=== PATIENT | male | born 2000 | race Native Hawaiian/Other Pacific Islander ===

== ENCOUNTER 2024-06-12 20:10 | Emergency (ER) | payer OTHER, SELFPAY ==
--- OUTSIDE RECORDS SUMMARY | 2024-06-12 20:13 | XMS_ITS | Clinical Summary ---
Author Organization [employer] Address [address] [place] [id number] Care Team Providers Care Air Analysis Engineering Technician Name Role Phone No, Pcp [[id number]] Primary Care Provider Unavailabl e Allergies No known active allergies Medications EPINEPHrine (EPIPEN) 0.3 mg/0.3 mL injectionIndic ations:Anaphyl axis due to exercise, subsequent encounter Inject 0.3 mg intramuscular one time if needed for Allergic Reaction for up to 1 dose. 2 Each 5 8 Active fexofenadine (MAR) 180 mg tabletIndicati ons:Seasonal allergies Take 1 tablet by mouth once daily. 90 tablet 3 8 Active Active Problems Problem Noted Date Diagnosed Date Tear of left glenoid labrum 06/15/2022 Urticaria of unknown origin 12/24/2016 Immunizations Immunization Administration Dates Next Due DTaP 10/20/2007, 4,08/08/2003,11/10,2002 [id number] (Pediarix) 2002,2002 HIB PRP-OMP (PedvaxHIB) 08/08/2003,2002, HIB PRP-T (ActHIB,Hiberix) 2002 HIB-HepB (Comvax) 08/08/2003 HPV 9 (Gardasil 9) 09/08/2017 Hepatitis A (Peds) 10/17/2010,10/20/2007 Hepatitis B (Peds) 05/08/2004,12/12/2003, 004 Inactivated Polio Vaccine 10/20/2007,,2002,08/09 Influenza, IIV3 (Age >=3 years) 12/12/2003 MENINGOCOCCAL VACCINE 2 VIAL 2MO-55YO (MENVEO) 10/05/2013 MMR 10/20/2007,08/08/2003 Pneumococcal conj 7-Valent (Prevnar 7) 3,2002 Tdap 10/05/2013 Varicella Vaccine 10/20/2007,12/12/2003 Family History Medical History Relation Name Comments No Known Problems Brother 1 No Known Problems Brother 2 Good Health Father passed in accid ent Heart Disease Maternal Grandfather Heart attack Maternal Grandfather Heart Disease Maternal Grandmother Heart attack Maternal Grandmother Good Health Mother No Known Problems Sister 1 No Known Problems Sister 2 Relation Name Status Comments Brother 1 Alive Brother 2 Alive Father (Age 23) accident Maternal Grandfather (Age 54) [place] Maternal Grandmother Alive Mother Alive Sister 1 Alive Sister 2 Alive Social History Tobacco Use Types Packs/Day Years Used Date Smoking Tobacco: Never Smokeless Tobacco: Never Tobacco Cessation:Counseling Given: Yes Comments:no exposure Alcohol Use Standard Drinks/Week Comments No 0 (1 standard drink = 0.6 oz pur e alcohol) PHQ-2 Answer Date Recorded PHQ-2 Score 0 04/17/2018 Social Connections Answer Date Recorded Frequency of Communication with Friends and Fami ly Not on file 06/29/2022 Financial Resource Strain Answer Date R ecorded Difficulty of Paying Living Expenses 3 06/18/2021 Difficulty of Paying Living Expenses Not on file 06/18/2021 Food Insecurity Answer Date Recorded Worried About Running Out of Food in the Last Ye ar 1 06/18/2021 Transportation Needs Answer Date Record ed Lack of Transportation (Medical) 1 06/18/2021 Housing Stability Answer Date Recorded Unable to Pay for Housing in the Last Year 1 06/18/2021 Sex and Gender Information Value Date Recorded Sex Assigned at Not on file Legal Sex Male 5:50 AM EMERGENCY DEPARTMENT DIRECTOR Gender Identity Not on file Sexual Orientation Not on file Occupation Industry Job Start Date Job End Date Student Not on file Not on file Not on file Obstetrics History Last Filed Vital Signs Vital Sign Reading Time Taken Comments Blood Pressure 104/70 02/16/2023 3:09 PM EMERGENCY DEPARTMENT DIRECTOR Pulse 68 02/16/2023 3:09 PM EMERGENCY DEPARTMENT DIRECTOR Temperature 36.6 C (97.9 F) 02/16/2017 1:48 PM EMERGENCY DEPARTMENT DIRECTOR Respiratory Rate 16 02/16/2023 3:09 PM EMERGENCY DEPARTMENT DIRECTOR Oxygen Saturation 99% 12/29/2022 4:11 PM EMERGENCY DEPARTMENT DIRECTOR Inhaled Oxygen Concentration - - Weight 67.7 kg (149 lb 3.2 oz) 02/16/2023 3:09 P M EMERGENCY DEPARTMENT DIRECTOR Height 177.2 cm (5' 9.75) 02/16/2023 3:09 PM CS T Body Mass Index 21.56 02/16/2023 3:09 PM EMERGENCY DEPARTMENT DIRECTOR Plan of Treatment Health Maintenance Due Date Last Done Comments HPV series for age 9-26 (2 - Male 3-dose series) 10/06/2017 09/08/2017 Depression screening for age 12+ 09/10/2018 09/10/2017, 09/08/2017, 06/27/2015 Tetanus booster 10/06/2023 10/05/2013 COVID-19 vaccine series ( season) 2023 04/28/2021 BMI (ht and wt on same day) for age 18+ 02/17/2024 02/16/2023, 05/18/2022, 07/29/2021 Influenza Vaccine (Season Ended) 2024 12/12/2003 Pneumococcal series for age 6-49 Aged Out 2002, 2002 No longer eligible based on patient's age to complete this topic Tdap Completed 10/05/2013 HIV for age 15-65 Completed 12/29/2022 Hepatitis C screening for ag e 18-79 Completed 12/29/2022 Procedures Procedure Name Priority Date/Time Associated Diagnosis Comments ANTI HIV 1/2 Routine 12/29/2022 4:25 PM EMERGENCY DEPARTMENT DIRECTOR Screening for HIV (human immunodeficiency virus) ANTI HCV Routine 12/29/2022 4:25 PM EMERGENCY DEPARTMENT DIRECTOR Need for hepatitis C screening test from Last 3 Months or Most Recently Relevant to Health Maintenance Results * ANTI HCV (12/29/2022 4:25 PM EMERGENCY DEPARTMENT DIRECTOR) HEPATITIS C ANTIBODY Non-Reacti ve Non-React osvaldo 12/30/2022 2:51 PM EMERGENCY DEPARTMENT DIRECTOR [facility] Comment:Please note, per www .CDC.gov: If a patient is known to be at high risk of HCV infection, or is symptomatic, and the physician's suspicion of HCV infection is high, HCV RNA testing is often employed and is of diagnostic value, even after an initial negative anti-HCV test result. Blood BLOOD SPECIMEN / Unknown Venipuncture / Unknown 12/29/2022 4:25 PM EMERGENCY DEPARTMENT DIRECTOR 12/29/2022 4:28 PM EMERGENCY DEPARTMENT DIRECTOR [employer] DO SEND OUTS Final Result Performing Organization Address [facility] Co de Phone Number [facility] [employer] [facility] [address] [address], * ANTI HIV 1/2 [99046.0] (12/29/2022 4:25 PM EMERGENCY DEPARTMENT DIRECTOR) HIV-1/HIV-2 SCREEN Non-Reacti ve Non-Reacti ve 12/30/2022 2:41 PM EMERGENCY DEPARTMENT DIRECTOR [facility] [employer] [facility]WV[facility] Comment:HIV-1 p24 and HIV-1/ HIV-2 Ab Not Detected. Blood BLOOD SPECIMEN / Unknown Venipuncture / Unknown 12/29/2022 4:25 PM EMERGENCY DEPARTMENT DIRECTOR 12/29/2022 4:28 PM EMERGENCY DEPARTMENT DIRECTOR [employer] DO SEND OUTS Final Result Performing Organization Address [facility] Co de Phone Number [facility] [employer] [facility] [address] [place] [address], from Last 3 Months or Most Recently Relevant to Health Maintenance Insurance [facility] Care Teams Air Analysis Engineering Technician Relationship Specialty Start Date End Date NO, PCP [[id number]] PCP - General 06/27/15
--- OUTSIDE RECORDS SUMMARY | 2024-06-12 20:13 | XMS_ITS | Clinical Summary ---
[facility] Organization [facility] Address [address], [place] [address] Care Team Providers Care Psychometrician Name Role Phone Unavailable Primary Care Provider Unavailabl e Source Comments You are receiving this document as you are listed as the primary care provider,follow-up provider, or the patient has been referred to you for consultation.This is in compliance with the Medicare andMedicaid EHR Incentive Program,which states Providers who transition their patient to another setting of careor provider of care or refers their patient to another provider of care shouldprovide summary care record for each transition of care or referral. [facility] Social History Tobacco Use Types Packs/Day Years Used Date Smoking Tobacco: Never Assessed Sex and Gender Information Value Date Recorded Sex Assigned at Not on file Legal Sex Male 1:32 PM CDT Gender Identity Not on file Sexual Orientation Not on file Last Filed Vital Signs Vital Sign Reading Time Taken Comments Blood Pressure 112/71 09/02/2021 3:02 PM CDT Pulse 60 09/02/2021 3:02 PM CDT Temperature - - Respiratory Rate - - Oxygen Saturation - - Inhaled Oxygen Concentration - - Weight 64.9 kg (143 lb 1.6 oz) 09/02/2021 3:02 P M CDT Height 175.3 cm (5' 9) 09/02/2021 3:02 PM CDT Body Mass Index 21.13 09/02/2021 3:02 PM CDT Plan of Treatment Health Maintenance Due Date Last Done Comments Hep C Screening (Preventive Services) 2002 MenB Immunization Discussion 2002 HPV Vaccine (2 - Male 3-dose series) 10/06/2017 09/08/2017 HIV Screening (Preventive Services) 2018 HepB Vaccine (1) 2021 Adult Preventive Visit 09/02/2022 09/02/2021 DTaP/Tdap/Td Vaccine (7 - Tdap) 10/06/2023 10/05/2013, 10/20/2007, 12/12/2003, Additional history exists COVID-19 Vaccine ( season) 2023 04/28/2021 Influenza Vaccine (#1) 2023 12/12/2003 Zoster/Shingles Vaccine (1 of 2) 2052 Pneumococcal Vaccine Aged Out 2002, 08/10/19 No longer eligible based on patient's age to complete this topic Hib Vaccine Completed 08/08/2003, 10/17, 2002 IPV (Polio) Vaccine Completed 10/20/2007, 08/08/2003, 2002, Additional history exists HepA Vaccine Completed 10/17/2010, 10/20/2007 MCV4 Vaccine Aged Out 10/05/2013 No longer eligi ble based on patient's age to complete this topic
[2024-06-12 20:14] VITALS: BP 132/71; PULSE 67; RESP 18; TEMP 36.8; O2SAT 99; BMI 22.2
--- NOTE | 2024-06-12 20:17 | ED_ITS ---
HPI - General Adult General Time Seen by Provider: 20:17 Date Seen: 06/12/24 Chief complaint: Ear/Nose/Throat Problem Stated complaint: sinus infection Time Seen by Provider: 06/12/24 20:16 Source: patient, family and RN notes reviewed Mode of arrival: ambulatory Limitations: no limitations History of Present Illness HPI narrative: Estefani is a very pleasant 24-year-old otherwise healthy young man with a history of allergies who comes to the emergency room with complaints of facial pain especially left nose and left forehead. Patient notes that he has been dealing with allergies and a week ago suddenly had increased congestion. It had been getting better but over the last 24 hours it is much worse seems to be throughout his whole face but mainly in left for haired and left in nose. He is getting discharge. He has had a low-grade fever. He has no sore throat. He has had no significant cough. No history of recent antibiotics or sinusitis. Patient also notes that his right ear has been hurting him for approximately 3 weeks. His has not been ill. Related Data Home Medications ?Medication ?Instructions ?Recorded ?Confirmed venlafaxine 150 mg 150 mg PO DAILY 06/12/24 06/12/24 capsule,extended release 24 hr (Effexor XR) venlafaxine 37.5 mg 37.5 mg PO DAILY 06/12/24 06/12/24 capsule,extended release 24 hr (Effexor XR) Allergies Allergy/AdvReac Type Severity Reaction Status Date / Time No Known Drug Allergies Allergy Verified 06/12/24 20:17 Review of Systems Status of ROS: Reports: 6 or more systems reviewed and unremarkable except as noted in History and below [facility] Medical History No significant past medical history Surgical History No significant past surgical history Social History Smoking Status: Never smoker Second hand tobacco smoke exposure: No How often do you have a drink containing alcohol: never AUDIT-C Alcohol total score: 0 Non-prescribed substance use: denies use Exam Narrative: Exam Narrative: Alert and oriented very pleasant. Arrives with in brand new baby. EOM is full pupils equal round. TMs bilaterally are dull but they are not bulging. Right TM does have a small amount of fluid behind it. Oral cavity with moist mucous membranes. No facial asymmetry. Tenderness noted over the forehead. Neck is supple. Heart with regular rate and rhythm and lungs are clear in all lung carbajal. Moving all extremities. Const: Vital Signs, click to edit/add: Vital Signs - 24 hr 06/12/24 20:14 Temperature 98.2 F Pulse Rate [Right Pulse Oximeter] 67 Respiratory Rate 18 Blood Pressure [Ri ght Upper Arm] 132/71 Pulse Oximetry 99 Oxygen Delivery Me thod Room Air Documenting provider has reviewed patient's vital signs: yes Course Vital Signs Vital signs: Initial Vital Signs Temperature 98.2 F 06/12/24 20:14 Temperature Source Temporal Artery Scan 06/12/24 20:14 Pulse Rate 67 06/12/24 20:14 Respiratory Rate 18 06/12/24 20:14 Blood Pressure 132/71 06/12/24 20:14 Blood Pressure Mean 91 06/12/24 20:14 Blood Pressure Position Sitting 06/12/24 20:14 Pulse Oximetry 99 06/12/24 20:14 Oxygen Delivery Method Room Air 06/12/24 20:14 Vital Signs Temperature 98.2 F 06/12/24 20:14 Pulse Rate 67 06/12/24 20:14 Respiratory Rate 18 06/12/24 20:14 Blood Pressure 132/71 06/12/24 20:14 Pulse Oximetry 99 06/12/24 20:14 Oxygen Delivery Method Room Air 06/12/24 20:14 Temperature 98.2 F 06/12/24 20:14 Pulse Rate 67 06/12/24 20:14 Respiratory Rate 18 06/12/24 20:14 Blood Pressure 132/71 06/12/24 20:14 Pulse Oximetry 99 06/12/24 20:14 Oxygen Delivery Method Room Air 06/12/24 20:14 Medical Decision Making MDM Narrative Medical decision making narrative: 1. Sinusitis-patient notes ongoing symptoms today's day. I am going to treat with antibiotics and the reason for that is the pain is localized as well as he suddenly ill worsening over the last 24 hours with low-grade fever. Will treat with amoxicillin 500 mg p.o. t.i.d. times 10 days. Recommend return for worsening symptoms. Recommend continuing throughout the full 10 day course. He 2. Disposition-home at this time. Return as needed Discharge Plan Discharge Clinical Impression: Sinusitis Patient Disposition: Home, Self-Care Condition: Unchanged Additional Instructions: Start amoxicillin an antibiotic for the treatment of sinus infection. This can be obtain in our [facility] meds machine as are no pharmacies open this evening. Recommend completing the treatment for a full 10 days. Follow-up for worsening symptoms. Ibuprofen or Tylenol may be used for discomfort. Prescriptions: No Action venlafaxine [Effexor XR] 37.5 mg capsule,extended release 24hr 37.5 mg PO DAILY venlafaxine [Effexor XR] 150 mg capsule,extended release 24hr 150 mg PO DAILY Follow Up/Referrals: Provider,Not a Local [Primary Care Provider] - Stand Alone Forms: [facility] medical Info Instructions
[2024-06-12 20:35] VITALS: BP 132/71; PULSE 67; RESP 18; TEMP 36.8
[2024-06-12 20:36] VITALS: BP 128/74; PULSE 62; RESP 18; TEMP 36.8; O2SAT 99
--- OUTSIDE RECORDS SUMMARY | 2024-06-12 20:47 | XMS_ITS | Clinical Summary ---
Author Organization [facility] Address [address], [place] [address] Care Team Providers Care Water Leak Repairer Name Role Phone Unavailable Primary Care Provider [...] for each transition of care or referral. [facility] Social History Tobacco Use Types Packs/Day Years [...]
--- OUTSIDE RECORDS SUMMARY | 2024-06-12 20:47 | XMS_ITS | Clinical Summary ---
Author Organization [employer] Address [address] [place] [id number] Care Team Providers Care Window Assembler Name Role Phone No, Pcp [[id number]] Primary [...] Administration Dates Next Due DTaP 10/20/2007, 4,08/08/2003,11/10,2002 [id number] (Pediarix) 2002,2002 HIB PRP-OMP (PedvaxHIB) 08/08/2003,2002, HIB [...] (Age 23) accident Maternal Grandfather (Age 54) [place] Maternal Grandmother Alive Mother Alive Sister 1 [...] on file Legal Sex Male 5:50 AM ACCOUNT UNDERWRITER Gender Identity Not on file Sexual Orientation Not on file Occupation Industry Job Start Date Job End Date Student Not on file Not on file Not on file Obstetrics History Last Filed Vital Signs Vital Sign Reading Time Taken Comments Blood Pressure 104/70 02/16/2023 3:09 PM ACCOUNT UNDERWRITER Pulse 68 02/16/2023 3:09 PM ACCOUNT UNDERWRITER Temperature 36.6 C (97.9 F) 02/16/2017 1:48 PM ACCOUNT UNDERWRITER Respiratory Rate 16 02/16/2023 3:09 PM ACCOUNT UNDERWRITER Oxygen Saturation 99% 12/29/2022 4:11 PM ACCOUNT UNDERWRITER Inhaled Oxygen Concentration - - Weight 67.7 kg (149 lb 3.2 oz) 02/16/2023 3:09 P M ACCOUNT UNDERWRITER Height 177.2 cm (5' 9.75) 02/16/2023 3:09 PM CS T Body Mass Index 21.56 02/16/2023 3:09 PM ACCOUNT UNDERWRITER Plan of Treatment Health Maintenance Due Date [...] ANTI HIV 1/2 Routine 12/29/2022 4:25 PM ACCOUNT UNDERWRITER Screening for HIV (human immunodeficiency virus) ANTI HCV Routine 12/29/2022 4:25 PM ACCOUNT UNDERWRITER Need for hepatitis C screening test from Last 3 Months or Most Recently Relevant to Health Maintenance Results * ANTI HCV (12/29/2022 4:25 PM ACCOUNT UNDERWRITER) HEPATITIS C ANTIBODY Non-Reacti ve Non-React osvaldo 12/30/2022 2:51 PM ACCOUNT UNDERWRITER [facility] Comment:Please note, per www .CDC.gov: If a patient is known to be at high risk of HCV infection, or is symptomatic, and the physician's suspicion of HCV infection is high, HCV RNA testing is often employed and is of diagnostic value, even after an initial negative anti-HCV test result. Blood BLOOD SPECIMEN / Unknown Venipuncture / Unknown 12/29/2022 4:25 PM ACCOUNT UNDERWRITER 12/29/2022 4:28 PM ACCOUNT UNDERWRITER Adei Menigara DO SEND OUTS Final Result Performing Organization Address [facility] Co de Phone Number [facility] [address] [address], * ANTI HIV 1/2 [59036.0] (12/29/2022 4:25 PM ACCOUNT UNDERWRITER) HIV-1/HIV-2 SCREEN Non-Reacti ve Non-Reacti ve 12/30/2022 2:41 PM ACCOUNT UNDERWRITER [facility] Comment:HIV-1 p24 and HIV-1/ HIV-2 Ab Not Detected. Blood BLOOD SPECIMEN / Unknown Venipuncture / Unknown 12/29/2022 4:25 PM ACCOUNT UNDERWRITER 12/29/2022 4:28 PM ACCOUNT UNDERWRITER [employer] DO SEND OUTS Final Result Performing Organization Address [facility] Co de Phone Number [facility]Pass[facility] [address] [place] [address], from Last 3 Months or Most Recently Relevant to Health Maintenance Insurance [facility] Care Teams Window Assembler Relationship Specialty Start Date End Date NO, PCP [[id number]] PCP - General 06/27/15
== END 2024-06-12 21:14 | disposition home or self-care (01) ==
LOC: ED 20:46
PROVIDERS: Emergency Provider Family Medicine
DX: J32.9 Chronic sinusitis, unspecified (principal)
CPT/HCPCS: 99283